=== PATIENT | male | born 1990 | race Two or more races ===

== ENCOUNTER 2025-01-30 14:05 | Emergency (ER) | payer BC, SELFPAY ==
[2025-01-30 14:20] VITALS: BP 120/77; PULSE 56; RESP 16; TEMP 36.3; O2SAT 100; BMI 25.1
--- NOTE | 2025-01-30 14:24 | XR_ITS ---
Examination: CT abdomen and pelvis without contrast. Coronal 3-D reconstructions. Sagittal 2-D reconstructions. Date and time of exam:January 30, 2025 1447 hours INDICATIONS: Onset right-sided flank pain today CTDI: vol (mGy): 7.58 DLP: (mGycm): 458 Technique: Axial images of the abdomen have been obtained, 3 mm slice thickness Intravenous contrast material has not been administered. Low dose protocols were performed. One or more of the following dose reduction techniques were used; automated exposure control, adjustment of the mA and/or KV according to patient size, use of iterative reconstruction technique. Findings: No focal liver or splenic lesion No gallstones No pancreatic or adrenal mass Mild right hydronephrosis, secondary to 2 mm distal right ureterovesical junction calculus image 206 Aorta normal size No bowel obstruction Normal appendix No bladder mass or bladder calculi Grade 1 spondylolisthesis L5 on S1 IMPRESSION: Mild right hydronephrosis secondary to 2 mm distal right ureteral vesical junction calculus
--- NOTE | 2025-01-30 14:24 | PD.EDRME ---
Rapid Medical Screening Exam [facility] Arrival date/time: 01/30/25 14:05 34-year-old male presents to the emergency department complaints of right abdominal pain right flank pain acute onset this morning Chief Complaint: Abdominal Pain Vital signs: Vital Signs Temperature 97.4 F 01/30/25 14:20 Pulse Rate 56 L 01/30/25 14:20 Respiratory Rate 16 01/30/25 14:20 Blood Pressure 120/77 01/30/25 14:20 Pulse Oximetry (%) 100 01/30/25 14:20 Oxygen Delivery Method Room Air 01/30/25 14:20
[2025-01-30 15:02] LABS: Collection Type, Urine Clean Catch; Squamous Epithelial Cell,Urine 0 /hpf (0-5)
[2025-01-30] MEDS: ONDANSETRON ODT 4 MG TABRAP PO (15:13)
[2025-01-30] MEDS: HYDROcodone/APAP 5/325 TABLET 1 TAB PO (15:13)
[2025-01-30 15:21] LABS: Basophils % (Auto) 0 % (0-2.5); Eosinophils % (Auto) 0 % (0-10); Hematocrit 39.4 % (41.0-53.0); Immature Granulocytes % (Auto) 0 % (0-0); Immature Granulocytes Auto 0.02 Thou/mm3 (0.00-0.00); Lymphocytes % (Auto) 8 % (10-50); Mean Corpuscular HGB Conc 35.5 g/dl (31.0-37.0); Mean Corpuscular Hemoglobin 30.7 pg (25.0-35.0); Mean Corpuscular Volume 86 fL (80-100); Monocytes # (Auto) 0.5 Thou/mm3 (0.0-0.8); Monocytes % (Auto) 4 % (0-12); Neutrophils # (Auto) 11.3 Thou/mm3 (1.8-7.7); Neutrophils % (Auto) 88 % (37-80); Nucleated Red Blood Cell % 0 /100 WBC (0); Platelet Count 277 Thou/mm3 (140-440); Red Blood Count 4.56 Miln/mm3 (4.50-5.90); White Blood Count 12.9 Thou/mm3 (3.8-10.6)
[2025-01-30 15:35] LABS: Bacteria,Urine Rare; Bilirubin,Urine Negative (Negative); Blood,Urine 3+ (Negative); Clarity,Urine Clear (Clear/Hazy); Color,Urine Yellow (Lt Yel-Yel); Culture Indicated,Urine Not Indicated; Glucose, Urine Negative (Negative); Ketones,Urine 1+ (Negative); Leukocyte Esterase,Urine Negative (Negative); Nitrite,Urine Negative (Negative); Protein,Urine 1+ (Neg - Trace); RBC,Urine 13 /hpf (0-3); Sperm,Urine Present; WBC,Urine 2 /hpf (0-5)
[2025-01-30 15:38] LABS: Alanine Aminotransferase 35 U/L (10-49); Albumin, Serum 4.7 gm/dL (3.5-5.0); Albumin/Globulin Ratio 1.5 (1.2-2.2); Alkaline Phosphatase 61 U/L (46-116); Anion Gap 8 (7-16); Aspartate Amino Transferase 28 U/L (0-34); BUN/Creatinine Ratio 10 Ratio (12-20); Bilirubin,Total 0.5 mg/dL (0.3-1.2); Blood Urea Nitrogen 13 mg/dL (9-23); Carbon Dioxide 24.9 mMol/L (20.0-31.0); Chloride 107 mMol/L (98-107); Creatinine (Component) 1.3 mg/dL (0.6-1.3); Estimated Creatinine Clearance 84.5 mL/min (>60); Globulin 3.1 gm/dL (2.3-3.5); Glucose 116 mg/dL (74-106); Lipase 35 U/L (12-53); Osmolality,Calculated 280 (275-295); Potassium 3.8 mMol/L (3.4-5.1); Sodium 140 mMol/L (136-145); Total Protein 7.8 gm/dL (5.7-8.2); eGFR > 60 See Note
--- NOTE | 2025-01-30 15:53 | EDNOTE_ITS ---
ED Abdominal Pain RME/HPI General Chief Complaint: Abdominal Pain Stated complaint: R/O APPENDICITIS Time seen by provider: 01/30/25 15:52 Arrival date/time: 01/30/25 14:05 34-year-old male presents to the emergency department complaints of right abdominal pain right flank pain acute onset this morning Limitations: no limitations RME / HPI RME / HPI narrative: 01/30/25 14:05 34-year-old male presents to the emergency department complaints of right abdominal pain right flank pain acute onset this morning Related Data Previous Rx's ?Medication ?Instructions ?Recorded hydrocodone 5 mg-acetaminophen 325 1 tab PO BID PRN pa in #10 tabs 01/30/25 mg tablet ibuprofen 800 mg tablet 800 mg PO TID PRN pain #30 t abs 01/30/25 tamsulosin 0.4 mg capsule (Flomax) 0.4 mg PO QDAY 14 d ays #14 caps 01/30/25 Allergies Allergy/AdvReac Type Severity Reaction Status Date / Time No Known Allergies Allergy Verified 01/30/25 14:07 Review of Systems Review of Systems Systems Reviewed: All systems reviewed, normal except as documented Constitutional Constitutional: Reports system reviewed and no additional complaints, except as documented, Denies fever(s) and Denies headache(s) Eyes Eyes: Reports system reviewed and no additional complaints, except as documented and Denies blurry vision ENT Ears, Nose, Mouth, and Throat: Reports system reviewed and no additional complaints, except as documented, Denies headache(s), Denies nasal congestion and Denies nasal discharge Cardiovascular Cardiovascular: Reports system reviewed and no additional complaints, except as documented, Denies chest pain and Denies dyspnea Respiratory Respiratory: Reports system reviewed and no additional complaints, except as documented, Denies chest congestion, Denies cough and Denies dyspnea Gastrointestinal Gastrointestinal: Reports system reviewed and no additional complaints, except as documented and Denies abdominal pain Musculoskeletal Musculoskeletal: Reports system reviewed and no additional complaints, except as documented and Reports back pain (Right flank pain) Integumentary/Breasts Skin/Breast: Reports system reviewed and no additional complaints, except as documented and Denies rash Neurologic Neurologic: Reports system reviewed and no additional complaints, except as documented, Reports as per HPI and Denies headache(s) Past Medical History Social History SMOKING STATUS: Never smoker ED Exam General Limitations: Present no limitations General appearance: Present alert and in no apparent distress Head Head exam: Present atraumatic Eye Eye exam: Present normal appearance, PERRL and EOMI; Absent conjunctival injection ENT ENT exam: Present normal exam, normal oropharynx and mucous membranes moist Neck Neck exam: Present normal inspection, full ROM and trachea midline Chest Chest inspection: Present normal inspection and symmetric chest wall rise Respiratory Respiratory exam: Present normal lung sounds bilaterally Cardiovascular Cardiovascular exam: Present regular rate, normal rhythm and normal heart sounds Abdominal Exam Abdominal exam: Present soft, normal bowel sounds and other (Right flank pain); Absent distention, tenderness, guarding, rebound or rigidity Extremities Exam Extremities exam: Present normal inspection and full ROM Back Exam Back exam: Present normal inspection and full ROM Neurological Exam Neurological exam: Present alert, oriented X3 and CN II-XII intact Psychiatric Psychiatric exam: Present normal affect and normal mood Skin Skin exam: Present warm, dry, intact and normal color Course Quality Measures none Orders Category Date Time Status CT abdomen pelvis wo con Stat Exams 01/30/25 14:24 Completed CBC Stat Lab 01/30/25 15:04 Completed Comprehensive Metabolic Panel Stat Lab 01/30/25 15:04 Completed Lipase Stat Lab 01/30/25 15:04 Completed UA, C/S IF [Urinalysis, C/S if Indicated] Stat Lab 01/30/25 14:40 Completed HYDROcodone*/APAP 5/325 [[place] 5/325] Med 01/30/25 15:05 Discontinued 1 tab PO X1 ONE Ondansetron Odt [Zofran Odt] Med 01/30/25 15:05 Discontinued 4 mg PO X1 ONE Vital Signs Vital signs: Vital Signs Temperature 97.4 F 01/30/25 14:20 Pulse Rate 56 L 01/30/25 14:20 Respiratory Rate 16 01/30/25 14:20 Blood Pressure 120/77 01/30/25 14:20 Pulse Oximetry (%) 100 01/30/25 14:20 Oxygen Delivery Method Room Air 01/30/25 14:20 O2 saturation 100% room air within normal limits Abdominal Pain MDM MDM Narrative MDM Narrative:: 34-year-old male presents to the emergency department complaints of right abdominal pain right flank pain acute onset this morning On exam patient has right flank pain and right side abdominal pain I believe patient most likely has kidney stone based on symptomatology Patient was given pain medication here which improved his symptoms Lab work as well as imaging reviewed imaging consistent with 2 mm kidney stone Patient be treated outpatient at this point if symptoms persist or worsen patient is instructed to return for reevaluation Patient data External records reviewed:: [facility] previous records Clinical information provided by:: patient Social determinants that could affect healthcare access:: none Patient has the following chronic illnesses:: None How is presenting disease/condition affected by chronic disease/condition?: no chronic disease Evaluation data The following diagnostics were reviewed and interpreted by me:: lab results and radiology exam(s) Lab and/or radiology exams considered but not ordered:: Labs and radiology obtained Interpretation Summary: Reviewed by me Medications / Prescriptions Medications or Prescriptions considered but not ordered:: Given Medication administrations:: Medication Administration History Discontinued Medications Hydrocodone Bitart/Acetaminophen (Hydrocodone/Apap 5/325 Tablet) 1 tab PO X1 ONE Stop: 01/30/25 15:06 Last Admin: 01/30/25 15:13 Dose: 1 tab Documented By: Ondansetron HCl (Ondansetron Odt 4 Mg Tabrap) 4 mg PO X1 ONE; Protocol Stop: 01/30/25 15:06 Last Admin: 01/30/25 15:13 Dose: 4 mg Documented By: Given Consultations Consultation(s) initiated? (list below): No Diagnosis Differential diagnosis abdominal pain: abdominal pain, acute appendicitis, calculus of kidney, pancreatitis and small bowel obstruction Most likely diagnosis given after review of the tests above:: Kidney stone Admission Indicated Admission indicated?: not indicated Admission Request Was there a request for admission?: No Disposition Plan Disposition Plan: Discharge Discharge Attestation Discharge Attestation: The patient and all family members were given an opportunity to ask questions and understood the discharge instructions. Discharge instructions specifically effects, indications for sooner follow up or return to the emergency department, and the expected course of current diagnosis. Patient condition: Stable Discharge Plan Plan Patient Disposition: HOME (Self Care) Discharge Disposition comment: stable Prescriptions/Referrals Prescriptions/Med Rec: New ibuprofen 800 mg tablet 800 mg PO TID PRN (Reason: pain) Qty: 30 0RF tamsulosin [Flomax] 0.4 mg capsule 0.4 mg PO QDAY 14 Days Qty: 14 0RF hydrocodone-acetaminophen 5-325 mg tablet 1 tab PO BID MDD 10 PRN (Reason: pain) Qty: 10 0RF Problem List Clinical Impression: Renal colic Patient/Caregiver Discharge Instructions Education Materials: ED Kidney Stone w/ Colic Additional Instructions: Please follow up with your primary care doctor in the next 24-48hrs for any worsening symptoms return here immediately Print Language: Guatemalan Stand Alone Forms: Ernestina Award Info., Work/School Release, Patient Portal Info Letter PA/LABELING SPECIALIST Supervising Physician PA/LABELING SPECIALIST Supervising Physician: Dr. crain
== END 2025-01-30 16:24 | disposition home or self-care (01) ==
LOC: SERX 16:16
PROVIDERS: Nurse Practitioner Primary Care; Emergency Provider Family Medicine
DX: N23 Unspecified renal colic (principal)
CPT/HCPCS: 36415; 74176; 80053; 81001; 83690; 85025; 99284; Q0162; A9270